=== PATIENT | female | born 1985 | race Caucasian/White ===

== ENCOUNTER 2018-01-10 11:28 | Emergency (ER) | payer SELFPAY ==
[~2018-01-10] VITALS: Ht 172.7 cm; Wt 90.0 kg
[~2018-01-10 11:28] MED LIST: AMOXICILLIN500 MG PO; AMOXIL500 MG OR; MACROBID100 MG PO; METHYLPRED4 M1 PO; NO; ULTRAM50 M1 PO
[2018-01-10] MEDS ORDERED: ESCITALOPRAM OX20 MG PO (12:04)
[2018-01-10] MEDS ORDERED: BUSPAR15 M1 PO (12:04)
[2018-01-10] MEDS ORDERED: OLANZAPINE5 MG PO (12:05)
[2018-01-10] MEDS ORDERED: OXCARBAZEPINE150 MG PO (12:05)
[2018-01-10] MEDS ORDERED: BUPROPION HCL150 MG PO (12:05)
[2018-01-10] MEDS ORDERED: TRAMADOL HCL50 MG PO (12:34)
[2018-01-10] MEDS ORDERED: MOTRIN800 MG PO (12:34)
[2018-01-10 12:40] VITALS: BP 116/72
== END 2018-01-10 12:40 | disposition home or self-care (01) | DRG 605 ==
LOC: ED 11:28
DX: S90.02XA Contusion of left ankle, initial encounter (principal); S90.32XA Contusion of left foot, initial encounter; F41.9 Anxiety disorder, unspecified; F31.9 Bipolar disorder, unspecified; F17.210 Nicotine dependence, cigarettes, uncomplicated; W55.29XA Other contact with cow, initial encounter; Y92.009 Unspecified place in unspecified non-institutional (private) residence as the place of occurrence of the external cause

== ENCOUNTER 2018-11-07 14:52 | Emergency (ER) | payer SELFPAY ==
[~2018-11-07] VITALS: Ht 172.7 cm; Wt 68.2 kg
[~2018-11-07 14:52] MED LIST changes: +BUPROPION HCL150 MG PO; +BUSPAR15 M1 PO; +ESCITALOPRAM OX20 MG PO; +MOTRIN800 MG PO; +OLANZAPINE5 MG PO; +OXCARBAZEPINE150 MG PO; +TRAMADOL HCL50 MG PO
[2018-11-07] MEDS ORDERED: EFFEXOR XR75 MG PO (15:02)
[2018-11-07 15:38] LABS: HEMATOCRIT 39.9 % (37.0-47.0); HEMOGLOBIN 13.6 g/dl (12.0-16.0); IMMATURE GRANULOCYTES 0.4 % (0.0-5.0); MEAN CELL VOLUME 92.1 fL CALC (80.0-100.0); MEAN CORPUSCULAR HGB 31.4 pG CALC (26.0-32.0); MEAN CORPUSCULAR HGB CONC 34.1 g/L CALC (32.0-36.0); NEUT# 4.45 thou/uL (2.00-7.15); RED BLOOD COUNT 4.33 mill/uL (4.20-5.60); RED CELL DISTRI WIDTH 13.4 % (11.5-15.5)
[2018-11-07 15:39] LABS: GFR > 60 ML/MIN (>=60 (CALC)); GFR FOR AFR.AMER. > 60 ML/MIN (>=60 (CALC))
[2018-11-07 15:53] LABS: ANION GAP 13 (6-22 (CALC)); BUN 16 mg/dL (7-17); BUN/CREATININE RATIO 22 (12-20 (CALC)); CARBON DIOXIDE 25 mmol/l (22-30); CHLORIDE 106 mmol/l (95-108); CREATININE 0.7 mg/dL (0.5-1.0); GFR > 60 ML/MIN (>=60 (CALC)); GFR FOR AFR.AMER. > 60 ML/MIN (>=60 (CALC)); POTASSIUM 4.1 mmol/l (3.5-5.1); SODIUM 139 mmol/l (137-146)
[2018-11-07 17:14] VITALS: BP 109/72
== END 2018-11-07 17:22 | disposition left against medical advice (07) | DRG 66 ==
LOC: ED 14:52
PROVIDERS: Family Medicine
DX: I63.9 Cerebral infarction, unspecified (principal); Z91.19 Patient's noncompliance with other medical treatment and regimen; R20.0 Anesthesia of skin; R29.702 NIHSS score 2
CPT/HCPCS: Q9967

== ENCOUNTER 2019-03-31 16:41 | Emergency (ER) | payer SELFPAY ==
[~2019-03-31] VITALS: Ht 172.7 cm; Wt 69.0 kg
[~2019-03-31 16:41] MED LIST changes: +EFFEXOR XR75 MG PO
[2019-03-31] MEDS ORDERED: BUSPAR5 MG PO (16:49)
[2019-03-31] MEDS ORDERED: LAMOTRIGINE ER100 MG PO (16:50)
[2019-03-31] MEDS ORDERED: VENLAFAXINE HC150 MG PO (17:06)
[2019-03-31] MEDS ORDERED: BUSPAR15 M1 PO (17:06)
[2019-03-31] MEDS ORDERED: LAMICTAL100 MG PO (17:07)
[2019-03-31 17:35] LABS: URINE BILIRUBIN - DIPSTICK NEGATIVE (NEGATIVE); URINE BLOOD DIPSTICK LARGE (NEGATIVE); URINE COLOR YELLOW; URINE GLUCOSE - DIPSTICK NEGATIVE (NEGATIVE); URINE KETONE NEGATIVE (NEGATIVE); URINE LEUK ESTERASE NEGATIVE (NEGATIVE); URINE NITRITE - DIPSTICK NEGATIVE (Negative); URINE PH 5.5 (4.5-8.0); URINE PROTEIN - DIPSTICK 30 mg/dL (NEG-TRACE); URINE SPECIFIC GRAVITY >=1.030; URINE UROBILINOGEN - DIPSTICK 0.2 E.U./dL (0.2)
[2019-03-31 17:44] LABS: URINE SQUAMOUS EPITHELIAL CELL MODERATE EPI/hpf (0-FEW); URINE WBC 0-2 WBC/hpf (0-5)
[2019-03-31 17:45] LABS: URINE CALCIUM OXALATE CRYSTALS MANY lpf
[2019-03-31 19:10] VITALS: BP 119/74
== END 2019-03-31 19:10 | disposition home or self-care (01) | DRG 605 ==
LOC: ED 16:41
DX: S40.011A Contusion of right shoulder, initial encounter (principal); F17.210 Nicotine dependence, cigarettes, uncomplicated; W10.8XXA Fall (on) (from) other stairs and steps, initial encounter; Y92.009 Unspecified place in unspecified non-institutional (private) residence as the place of occurrence of the external cause

== ENCOUNTER 2020-05-30 19:16 | Emergency (ER) | payer OTHER ==
[~2020-05-30] VITALS: Ht 172.7 cm; Wt 62.0 kg
[~2020-05-30 19:16] MED LIST changes: +BUSPAR5 MG PO; +LAMICTAL100 MG PO; +LAMOTRIGINE ER100 MG PO; +VENLAFAXINE HC150 MG PO
[2020-05-30 20:27] LABS: HEMATOCRIT 39.2 % (37.0-47.0); IMMATURE GRANULOCYTES 0.3 % (0.0-5.0); MEAN CELL VOLUME 91.8 fL CALC (80.0-100.0); MEAN CORPUSCULAR HGB 30.4 pG CALC (26.0-32.0); MEAN CORPUSCULAR HGB CONC 33.2 g/dL CAL (32.0-36.0); NEUT# 4.21 thou/uL (2.00-7.15); RED BLOOD COUNT 4.27 mill/uL (4.20-5.60); RED CELL DISTRI WIDTH 12.5 % (11.5-15.5)
[2020-05-30 20:44] LABS: URINE BILIRUBIN - DIPSTICK NEGATIVE (NEGATIVE); URINE BLOOD DIPSTICK MODERATE (NEGATIVE); URINE COLOR YELLOW; URINE GLUCOSE - DIPSTICK NEGATIVE (NEGATIVE); URINE KETONE NEGATIVE (NEGATIVE); URINE LEUK ESTERASE NEGATIVE (NEGATIVE); URINE NITRITE - DIPSTICK NEGATIVE (Negative); URINE PROTEIN - DIPSTICK NEGATIVE (NEG-TRACE); URINE SPECIFIC GRAVITY 1.015; URINE UROBILINOGEN - DIPSTICK 0.2 E.U./dL (0.2)
[2020-05-30 20:45] LABS: ALBUMIN 4.3 g/dL (3.2-5.0); ALKALINE PHOSPHATASE 47 u/l (38-126); ANION GAP 10 (6-22 (CALC)); BUN 9 mg/dL (7-17); BUN/CREATININE RATIO 13 (12-20 (CALC)); CARBON DIOXIDE 27 mmol/l (22-30); CHLORIDE 104 mmol/l (95-108); CREATININE 0.7 mg/dL (0.5-1.0); GFR > 60 ML/MIN (>=60 (CALC)); GFR FOR AFR.AMER. > 60 ML/MIN (>=60 (CALC)); POTASSIUM 4.2 mmol/l (3.5-5.1); SGOT/AST 20 u/l (14-36); SODIUM 138 mmol/l (137-146); TOTAL PROTEIN 7.1 g/dL (6.3-8.2)
[2020-05-30 20:47] LABS: BILIRUBIN, TOTAL 0.1 mg/dL (0.0-1.4)
[2020-05-30 21:06] LABS: URINE SQUAMOUS EPITHELIAL CELL FEW EPI/hpf (0-FEW); URINE WBC 0-2 WBC/hpf (0-5)
[2020-05-30 23:45] VITALS: BP 112/63
== END 2020-05-30 23:57 | disposition home or self-care (01) ==
LOC: ED 19:16
PROVIDERS: Emergency Medicine
DX: R51.9 Headache, unspecified (principal); F31.9 Bipolar disorder, unspecified; F41.9 Anxiety disorder, unspecified; F17.210 Nicotine dependence, cigarettes, uncomplicated

== ENCOUNTER 2021-03-20 00:05 | Emergency (ER) | payer SELFPAY ==
[~2021-03-20] VITALS: Ht 172.7 cm; Wt 61.0 kg
[2021-03-20 01:00] LABS: HEMATOCRIT 38.4 % (37.0-47.0); HEMOGLOBIN 12.7 g/dl (12.0-16.0); IMMATURE GRANULOCYTES 0.2 % (0.0-5.0); MEAN CELL VOLUME 93.4 fL CALC (80.0-100.0); MEAN CORPUSCULAR HGB 30.9 pG CALC (26.0-32.0); MEAN CORPUSCULAR HGB CONC 33.1 g/dL CAL (32.0-36.0); NEUT# 6.76 thou/uL (2.00-7.15); RED BLOOD COUNT 4.11 mill/uL (4.20-5.60); RED CELL DISTRI WIDTH 12.4 % (11.5-15.5)
[2021-03-20 01:25] LABS: ALBUMIN 3.8 g/dL (3.2-5.0); ALKALINE PHOSPHATASE 48 u/l (38-126); ANION GAP 9 (6-22 (CALC)); BILIRUBIN, TOTAL 0.4 mg/dL (0.0-1.4); BUN 17 mg/dL (7-17); BUN/CREATININE RATIO 24 (12-20 (CALC)); CARBON DIOXIDE 29 mmol/l (22-30); CHLORIDE 103 mmol/l (95-108); CREATININE 0.7 mg/dL (0.5-1.0); ETHYL ALCOHOL 0 mg/dl (0-30); GFR > 60 ML/MIN (>=60 (CALC)); GFR FOR AFR.AMER. > 60 ML/MIN (>=60 (CALC)); POTASSIUM 3.6 mmol/l (3.5-5.1); SGOT/AST 20 u/l (14-36); SODIUM 138 mmol/l (137-146); TOTAL PROTEIN 6.9 g/dL (6.3-8.2)
[2021-03-20 02:29] LABS: URINE BILIRUBIN - DIPSTICK NEGATIVE (NEGATIVE); URINE BLOOD DIPSTICK NEGATIVE (NEGATIVE); URINE COLOR YELLOW; URINE GLUCOSE - DIPSTICK NEGATIVE (NEGATIVE); URINE KETONE NEGATIVE (NEGATIVE); URINE LEUK ESTERASE NEGATIVE (NEGATIVE); URINE PROTEIN - DIPSTICK NEGATIVE (NEG-TRACE); URINE SPECIFIC GRAVITY <=1.005; URINE UROBILINOGEN - DIPSTICK 0.2 E.U./dL (0.2)
[2021-03-20 02:34] LABS: URINE NITRITE - DIPSTICK NEGATIVE (Negative)
[2021-03-20 04:15] VITALS: BP 92/50
== END 2021-03-20 04:15 | DRG 918 ==
LOC: ED 00:05
DX: T43.592A Poisoning by other antipsychotics and neuroleptics, intentional self-harm, initial encounter (principal); T51.0X2A Toxic effect of ethanol, intentional self-harm, initial encounter; F31.9 Bipolar disorder, unspecified; F41.9 Anxiety disorder, unspecified; F17.200 Nicotine dependence, unspecified, uncomplicated

== ENCOUNTER 2021-12-23 12:17 | Emergency (ER) | payer OTHER ==
[~2021-12-23] VITALS: Ht 172.7 cm; Wt 59.1 kg
[2021-12-23] MEDS ORDERED: METHOCARBAMOL500 MG PO (14:03)
[2021-12-23] MEDS ORDERED: MOTRIN800 MG PO (14:03)
[2021-12-23] MEDS ORDERED: PAXLOVID PO (14:03)
[2021-12-23 14:18] VITALS: BP 112/71
== END 2021-12-23 14:32 | disposition home or self-care (01) ==
LOC: ED 12:17
DX: U07.1 COVID-19 (principal); R50.9 Fever, unspecified; R05.9 Cough, unspecified; R52 Pain, unspecified; R11.0 Nausea; R19.7 Diarrhea, unspecified; F31.9 Bipolar disorder, unspecified; F41.9 Anxiety disorder, unspecified; F17.210 Nicotine dependence, cigarettes, uncomplicated

== ENCOUNTER 2022-03-12 18:44 | Emergency (ER) | payer OTHER ==
[~2022-03-12] VITALS: Ht 172.7 cm; Wt 61.4 kg
[~2022-03-12 18:44] MED LIST changes: +METHOCARBAMOL500 MG PO; +PAXLOVID PO
[2022-03-12 19:26] LABS: URINE BILIRUBIN - DIPSTICK NEGATIVE (NEGATIVE); URINE BLOOD DIPSTICK TRACE-INTACT (NEGATIVE); URINE COLOR YELLOW; URINE GLUCOSE - DIPSTICK NEGATIVE (NEGATIVE); URINE KETONE NEGATIVE (NEGATIVE); URINE LEUK ESTERASE NEGATIVE (NEGATIVE); URINE PROTEIN - DIPSTICK NEGATIVE (NEG-TRACE)
[2022-03-12 19:31] LABS: URINE NITRITE - DIPSTICK NEGATIVE (Negative)
[2022-03-12] MEDS ORDERED: BACTRIM DS1 TAB PO (20:00)
[2022-03-12 20:24] VITALS: BP 99/64
== END 2022-03-12 20:28 | disposition home or self-care (01) ==
LOC: ED 18:44
PROVIDERS: Family Medicine
DX: B34.9 Viral infection, unspecified (principal); L03.313 Cellulitis of chest wall; F31.9 Bipolar disorder, unspecified; F41.9 Anxiety disorder, unspecified; F17.200 Nicotine dependence, unspecified, uncomplicated; Z20.822 Contact with and (suspected) exposure to COVID-19